=== PATIENT | male | born 1990 | race Two or more races ===

== ENCOUNTER 2020-11-16 00:29 | Emergency (ER) | payer SELFPAY ==
[~2020-11-16] VITALS: Ht 177.8 cm; Wt 72.6 kg
[2020-11-16] MEDS ORDERED: TDAP [DIPH/PERTUSSIS/TET] 0.5 ML VIAL IM ONE ×2 (00:43→01:00)
--- NOTE | 2020-11-16 00:55 | NUR ---
PT EXITED ER VIA FIRE EXIT DOOR. UNABLE TO LOCATE PT. Patient eloped from facility. ER MD notified.
[2020-11-16 01:54] VITALS: BP 119/74
== END 2020-11-16 01:56 | disposition left against medical advice (07) ==
LOC: ER 00:32
DX: S01.01XA Laceration without foreign body of scalp, initial encounter (principal); Y04.0XXA Assault by unarmed brawl or fight, initial encounter; Y93.89 Activity, other specified; Y92.89 Other specified places as the place of occurrence of the external cause; Y99.8 Other external cause status
CPT/HCPCS: 90715